=== PATIENT | female | born 1975 | race Caucasian/White ===

== ENCOUNTER 2017-03-25 19:46 | Emergency (ER) | payer OTHER ==
[2017-03-25 20:10] VITALS: BP 138/70; PULSE 92; RESP 18; TEMP 98.3
--- NOTE | 2017-03-25 20:15 | ED ---
General Adult HPI - General Chief complaint: Extremity Injury, Lower Stated complaint: foot pain Time Seen by Provider: 03/25/17 20:02 Source: patient, RN notes reviewed Mode of arrival: ambulatory Limitations: no limitations - History of Present Illness Initial comments: Patient is a 42-year-old female presents emergency room for evaluation of right foot callus. Patient states she's had this on and off since June. Patient states she's tried [id number] remedies including Dr. Solomon's liquid adhesive and soaking her foot in warm water. Patient states that the callus will go away for a few days and then return. Patient states it causes her pain every time she walks. Patient denies following up with her primary care provider or oval or circular glass cutter regarding this issue. Patient denies any recent injuries to the area. Patient denies redness or swelling from the area. Patient denies numbness or tingling in her feet. Patient denies any other complaints at this time. - Related Data Home Medications Medication Instructions Recorded Confirmed Citalopram Hydrobromide [CeleXA] 20 mg PO DAILY 08/21/14 03/25/17 Levothyroxine Sodium [Synthroid] 75 mcg PO DAILY 08/21/14 03/25/17 Lisinopril [Zestril] 2.5 mg PO DAILY 08/21/14 03/25/17 Simvastatin [Zocor] 20 mg PO HS 03/08/15 03/25/17 buPROPion XL [Wellbutrin Xl] 150 mg PO DAILY 06/11/16 03/25/17 Previous Rx's Medication Instructions Recorded ALPRAZolam [Xanax] 0.25 mg PO DAILY PRN #8 tab 05/03/16 Ibuprofen [Motrin] 600 mg PO Q6HR PRN #20 tab 06/11/16 Ibuprofen [Motrin] 600 mg PO Q6HR PRN #20 tab 11/20/16 Allergies Allergy/AdvReac Type Severity Reaction Status Date / Time [place] And Derivatives Allergy Rash/Hives Verified 03/25/17 20:01 [[place]] Review of Systems ROS Statement: Those systems with pertinent positive or pertinent negative responses have been documented in the HPI. ROS Other: All systems not noted in ROS Statement are negative. Past Medical History Past Medical History: Asthma, COPD, Hypertension, Thyroid Disorder History of Any Multi-Drug Resistant Organisms: MRSA Date of last positivie culture/infection: 09/2014 MDRO Source:: knee Past Surgical History: Section, Cholecystectomy, Orthopedic Surgery, Tubal Ligation Past Psychological History: Anxiety, Depression Smoking Status: Current every day smoker Past Alcohol Use History: None Reported Past Drug Use History: None Reported General Exam - General Exam Comments Initial Comments: Sitting in exam room, no acute distress. Limitations: no limitations General appearance: alert, in no apparent distress Head exam: Present: atraumatic, normocephalic, normal inspection Eye exam: Present: normal appearance ENT exam: Present: normal exam Neck exam: Present: normal inspection Respiratory exam: Absent: respiratory distress Right Foot/Toe exam: Present: full ROM. Absent: normal inspection (1 cm in diameter hard callus on the plantar portion of the foot between the first and second digits. No surrounding erythema, swelling or heat.) Neurovascular tendon exam: Present: no vascular compromise. Absent: pulse deficit (2+ dorsal pedal and posterior tibial pulses.), abnormal cap refill ( Capillary refill less than 2 seconds.) Back exam: Present: normal inspection Neurological exam: Present: alert, oriented X3, CN II-XII intact, normal gait Psychiatric exam: Present: normal affect, normal mood Skin exam: Present: warm, dry, normal color. Absent: rash Course Vital Signs 03/25/17 20:02 Temperature 98.3 F Pulse Rate 92 Respiratory 18 Rate Blood Pressure 138/70 O2 Sat by Pulse 96 Oximetry Medical Decision Making - Medical Decision Making Patient is a 42-year-old female since emergency room for evaluation of right foot callus. Advised patient to follow-up with oval or circular glass cutter for further evaluation/treatment. Patient states she understands everything that was discussed with her. Return parameters discussed. Case discussed with Dr. Colby. Disposition Clinical Impression: Callus of foot Disposition: HOME SELF-CARE Condition: Good Additional Instructions: Please follow-up with a oval or circular glass cutter for further evaluation/treatment. If any new symptom arises or symptoms worsen, return to ER as soon as possible. Referrals: Jordon Kebede DPM [STAFF PHYSICIAN] - 1-2 days Time of Disposition: 20:11
== END 2017-03-25 20:22 | disposition home or self-care (01) ==
LOC: EC 19:46
DX: L84 Corns and callosities (principal); I10 Essential (primary) hypertension; E07.9 Disorder of thyroid, unspecified; F32.9 Major depressive disorder, single episode, unspecified; F17.200 Nicotine dependence, unspecified, uncomplicated; Z79.899 Other long term (current) drug therapy; Z91.018 Allergy to other foods; Z98.890 Other specified postprocedural states
CPT/HCPCS: 99283

== ENCOUNTER 2017-04-04 19:36 | Observation (INO) | payer OTHER ==
[2017-04-04 19:41] VITALS: RESP 18
[2017-04-04] MEDS ORDERED: SODIUM CHLORIDE 0.9% 1,000 ML IV STA (19:46)
[2017-04-04] MEDS ORDERED: ASPIRIN 81 MG CHEW PO STA (19:46)
--- NOTE | 2017-04-04 19:51 | ED ---
Chest Pain HPI - General Chief Complaint: Chest Pain Stated Complaint: Chest Pain Time Seen by Provider: 04/04/17 19:43 Source: patient, RN notes reviewed Mode of arrival: wheelchair Limitations: no limitations - History of Present Illness Initial Comments: 42 yo female presents to the ER with cc of chest pain. Patient has been having this chest pain since this afternoon. It was associated with nausea and tingling in bilateral arms. Patient states she has a history of HTN as well as a LBBB. Patient states her pain is about a 9/10 in central chest. Patient states she has had no vomiting. Patient states she does have a MRSA cyst to the face that she started antibiotics for today but this chest pain is different. She denies any history of [place]. Patient states she was concerned due to the continued pain so she thought she should be evaluated. THere is no radiation. - Related Data Home Medications Medication Instructions Recorded Confirmed Citalopram Hydrobromide [CeleXA] 20 mg PO DAILY 08/21/14 04/04/17 Levothyroxine Sodium [Synthroid] 75 mcg PO DAILY 08/21/14 04/04/17 Lisinopril [Zestril] 2.5 mg PO DAILY 08/21/14 04/04/17 Simvastatin [Zocor] 20 mg PO HS 03/08/15 04/04/17 HYDROcodone/APAP 10-325MG [[place] 1 tab PO Q4HR PRN 04/04/17 04/04/17 10-325] Ibuprofen [Motrin] 800 mg PO TID PRN 04/04/17 04/04/17 Allergies Allergy/AdvReac Type Severity Reaction Status Date / Time [place] And Derivatives Allergy Anaphylaxis Verified 04/04/17 20:05 [[place]] Review of Systems ROS Statement: Those systems with pertinent positive or pertinent negative responses have been documented in the HPI. ROS Other: All systems not noted in ROS Statement are negative. EKG Findings - EKG Comments: EKG Findings:: normal sinus rhythm, left bundle branch block, ventricular rate 97, HI interval 150, QRS duration 142 Past Medical History Past Medical History: Asthma, COPD, Hypertension, Thyroid Disorder History of Any Multi-Drug Resistant Organisms: MRSA Date of last positivie culture/infection: 09/2014 MDRO Source:: knee Past Surgical History: Section, Cholecystectomy, Orthopedic Surgery, Tubal Ligation Past Psychological History: Anxiety, Depression Smoking Status: Current every day smoker Past Alcohol Use History: None Reported Past Drug Use History: None Reported General Exam Limitations: no limitations General appearance: alert, in no apparent distress Head exam: Present: atraumatic, normocephalic, normal inspection Eye exam: Present: normal appearance, PERRL, EOMI. Absent: scleral icterus, conjunctival injection, periorbital swelling ENT exam: Present: normal exam, mucous membranes moist Neck exam: Present: normal inspection. Absent: tenderness, meningismus, lymphadenopathy Respiratory exam: Present: normal lung sounds bilaterally. Absent: respiratory distress, wheezes, rales, rhonchi, stridor Cardiovascular Exam: Present: regular rate, normal rhythm, normal heart sounds. Absent: systolic murmur, diastolic murmur, rubs, gallop, clicks GI/Abdominal exam: Present: soft, normal bowel sounds. Absent: distended, tenderness, guarding, rebound, rigid Neurological exam: Present: alert, oriented X3, CN II-XII intact. Absent: motor sensory deficit Psychiatric exam: Present: normal affect, normal mood Skin exam: Present: warm, dry, other (he has a healing pimple to the right cheek.) Course Vital Signs 04/04/17 04/04/17 04/04/17 19:40 20:09 20:13 Temperature 99.8 F H Pulse Rate 107 H 108 H 103 H Respiratory 18 18 18 Rate Blood Pressure 186/107 170/95 161/93 O2 Sat by Pulse 100 99 99 Oximetry 04/04/17 20:23 Temperature 99.0 F Pulse Rate 100 Respiratory 18 Rate Blood Pressure 160/93 O2 Sat by Pulse 100 Oximetry - Reevaluation(s) Reevaluation #1: 04/04/17 20:24 patient's pain did improve with the nitro. Chest Pain MDM - [facility] 42-year-old female presents with chief complaint of chest pain with a history of hip to the left bundle-branch block.at this time patient's pain did improve with the nitro. This time we will admit the patient for cardiac rule out. This is discussed with the patient who is in agreement with the plan. At this time all her questions have been answered. Patient will be admitted. Disposition Clinical Impression: Unstable angina Disposition: ADMITTED IP TO [facility] Condition: Stable Time of Disposition: 21:04 Decision Date: 04/04/17 Decision Time: 21:04
[2017-04-04] MEDS: NITROGLYCERIN SL TABS 0.4 MG TAB SUBLINGUAL STA ×3 (20:05→20:15)
[2017-04-04 20:14] LABS: Basophils # (A) 0.1 k/uL (0-0.2); Basophils % (A) 1 %; CH 29.5; CHCM 33.3; Eosinophils # (A) 0.3 k/uL (0-0.7); Eosinophils % (A) 2 %; HCT 39.2 % (34.0-46.0); HDW 2.43; HGB 13.2 gm/dL (11.4-16.0); Luc # (Auto) 0.14; Luc % (Auto) 1; Lymphocytes # (A) 2.2 k/uL (1.0-4.8); Lymphocytes % (A) 21 %; MCH 29.9 pg (25.0-35.0); MCHC 33.7 g/dL (31.0-37.0); MCV 88.8 fL (80.0-100.0); Mean Platelet Volume 7.4; Monocytes # (A) 0.3 k/uL (0-1.0); Monocytes % (A) 3 %; Neutrophils # (A) 7.7 k/uL (1.3-7.7); Neutrophils % (A) 72 %; RBC 4.42 m/uL (3.80-5.40); WBC 10.7 k/uL (3.8-10.6)
[2017-04-04 20:28] LABS: ALT 29 U/L (9-52); AST 21 U/L (14-36); Alkaline Phosphatase 72 U/L (38-126); Amylase 60 U/L (30-110); Anion Gap 11 mmol/L; Blood Urea Nitrogen 10 mg/dL (7-17); Calcium 9.8 mg/dL (8.4-10.2); Carbon Dioxide 24 mmol/L (22-30); Chloride 103 mmol/L (98-107); Glucose 121 mg/dL (74-99); Non-African American GFR(MDRD) >60 (>60 ml/min/1.73 sqM); Potassium 3.7 mmol/L (3.5-5.1); Sodium 138 mmol/L (137-145); Total Bilirubin 0.5 mg/dL (0.2-1.3); Total Protein 7.8 g/dL (6.3-8.2)
[2017-04-04 20:33] LABS: Creatine Kinase 60 U/L (30-135)
[2017-04-04 20:36] LABS: INR 1.1 (<1.1); Prothrombin Time 10.6 sec (9.0-12.0)
--- NOTE | 2017-04-04 20:41 | XR ---
EXAMINATION TYPE: XR chest 2V DATE OF EXAM: 04/04/2017 8:20 PM COMPARISON: 01/01/2016 HISTORY: Chest pain TECHNIQUE: Frontal and lateral views of the chest are obtained. FINDINGS: Heart and mediastinum are normal. Lungs are clear. Diaphragm is normal. Bony thorax is int act. There are chest leads. IMPRESSION: Normal chest. No change.
[2017-04-04 20:46] LABS: Creatine Kinase MB 0.3 ng/mL (0.0-2.4); Troponin I <0.012 ng/mL (0.000-0.034)
[2017-04-04] MEDS ORDERED: HEPARIN SODIUM,PORCINE 5,000 UNIT/ML 1 ML VIAL IV ONE (21:02)
[2017-04-04] MEDS ORDERED: NITROGLYCERIN SL TABS 0.4 MG TAB SUBLINGUAL PRN (21:02)
[2017-04-04] MEDS ORDERED: HEPARIN SODIUM,PORCINE/D5W PMX 25,000 UNIT in DEXTROSE/WATER 1 500ML.BAG IV SCH (21:15)
[2017-04-04] MEDS ORDERED: NICOTINE 14MG/24HR PATCH TRANSDERM STA (21:21)
[2017-04-04] MEDS ORDERED: IBUPROFEN 200 MG TAB PO PRN (21:41)
[2017-04-04] MEDS ORDERED: ACETAMINOPHEN TAB 500 MG TAB PO STA (21:41)
[2017-04-04] MEDS ORDERED: HYDROcodone/APAP 10-325MG 1 EACH TAB PO PRN (21:41)
[2017-04-04 23:25] VITALS: BP 158/96; PULSE 87; TEMP 98.4
[2017-04-04] MEDS ORDERED: IBUPROFEN 800 MG TAB PO PRN (23:32)
[2017-04-05] MEDS ORDERED: CITALOPRAM HYDROBROMIDE 20 MG TAB PO SCH (09:00)
[2017-04-05] MEDS ORDERED: LISINOPRIL 2.5 MG TAB PO SCH (09:00)
[2017-04-05] MEDS ORDERED: SULFAMETHOX-TMP 800-160MG 1 EACH TAB PO SCH (09:00)
[2017-04-05] MEDS ORDERED: ASPIRIN 325 MG TAB PO SCH (09:00)
[2017-04-05] MEDS ORDERED: LEVOTHYROXINE 75 MCG TAB PO SCH (09:00)
--- NOTE | 2017-05-30 12:43 | P.HPIM ---
History of Present Illness H&P Date: 04/04/17 Chief Complaint: Chest pain This is a 42-year-old female who presented to the hospital chest pain. She has a history of hypertension, hyperlipidemia and hypothyroidism. Patient left AGAINST MEDICAL ADVICE before she was seen and examined. Information was obtained from ER report. Patient presented with chest pain with nausea and tingling in bilateral arms. EKG had shown a normal sinus rhythm with a left bundle branch block. Chest x-ray was negative. Troponin negative. Cardiology was consulted. Patient was admitted to the hospital. However she left AMA from the ER. Past Medical History Past Medical History: Asthma, COPD, Hypertension, Thyroid Disorder History of Any Multi-Drug Resistant Organisms: MRSA Date of last positivie culture/infection: 09/2014 MDRO Source:: knee Past Surgical History: Section, Cholecystectomy, Orthopedic Surgery, Tubal Ligation Past Psychological History: Anxiety, Depression Smoking Status: Current every day smoker Past Alcohol Use History: None Reported Past Drug Use History: None Reported Medications and Allergies Home Medications Medication Instructions Recorded Confirmed Type Citalopram Hydrobromide [CeleXA] 20 mg PO DAILY 08/21/14 04/17/17 History Levothyroxine Sodium [Synthroid] 75 mcg PO DAILY 08/21/14 04/17/17 History Lisinopril [Zestril] 5 mg PO DAILY 08/21/14 04/17/17 History Simvastatin [Zocor] 20 mg PO HS 03/08/15 04/17/17 History Ibuprofen [Motrin] 800 mg PO TID PRN 04/04/17 04/17/17 History Allergies Allergy/AdvReac Type Severity Reaction Status Date / Time [place] And Derivatives Allergy Anaphylaxis Verified 04/16/17 15:09 [[place]] Physical Exam Patient left AGAINST MEDICAL ADVICE before she was seen or examined Results CBC & Chem 7: 04/04/17 19:58 04/04/17 19:58 Assessment and Plan Plan: 1. Chest pain: First troponin negative. EKG shows normal sinus rhythm with a left bundle branch block. Cardiology consulted 2. Hypertension 3. Hyperlipidemia Please refer to ER report for full details. However, patient left AGAINST MEDICAL ADVICE before she was seen or examined by Dr. Lujan. Please note I am currently dictating this report for Dr. Lujan. I did not see or examined the patient
--- NOTE | 2017-05-30 12:49 | P.DS ---
Providers Date of admission: 04/04/17 21:27 Expected date of discharge: 06/04/17 Attending physician: Theodora Flower Consults: 04/04/17 21:02 Consult Physician Urgent Consulting Provider: Naman Munguia Consult Reason/Comments: UA Do you want consulting provider notified?: Yes Primary care physician: Aggie Foster Hospital Course: Discharge diagnosis Left AGAINST MEDICAL ADVICE 1. Chest pain: First troponin negative. EKG shows normal sinus rhythm with a left bundle branch block. Cardiology consulted 2. Hypertension 3. Hyperlipidemia Hospital course This is a 42-year-old female who presented to the hospital chest pain. She has a history of hypertension, hyperlipidemia and hypothyroidism. Patient left AGAINST MEDICAL ADVICE before she was seen and examined. Information was obtained from ER report. Patient presented with chest pain with nausea and tingling in bilateral arms. EKG had shown a normal sinus rhythm with a left bundle branch block. Chest x-ray was negative. Troponin negative. Cardiology was consulted. Patient was admitted to the hospital. However she left AMA from the ER. She has not seen or examined by Dr. Lujan or myself before she left AGAINST MEDICAL ADVICE Please refer to ER report I'm only dictating this report for Dr. Lujan Patient Condition at Discharge: Stable Plan - Discharge Summary New Discharge Prescriptions: No Action Lisinopril [Zestril] 5 mg PO DAILY Levothyroxine Sodium [Synthroid] 75 mcg PO DAILY Citalopram Hydrobromide [CeleXA] 20 mg PO DAILY Simvastatin [Zocor] 20 mg PO HS Ibuprofen [Motrin] 800 mg PO TID PRN PRN Reason: Pain Discharge Medication List Citalopram Hydrobromide [CeleXA] 20 mg PO DAILY 08/21/14 [History] Levothyroxine Sodium [Synthroid] 75 mcg PO DAILY 08/21/14 [History] Lisinopril [Zestril] 5 mg PO DAILY 08/21/14 [History] Simvastatin [Zocor] 20 mg PO HS 03/08/15 [History] Ibuprofen [Motrin] 800 mg PO TID PRN 04/04/17 [History] Follow up Appointment(s)/Referral(s): Aggie Foster MD [Primary Care Provider] - 1-2 days Discharge Disposition: Left Against Medical Advice
== END 2017-04-05 00:06 | disposition left against medical advice (07) ==
LOC: EC 19:36 → 3OBS 21:27
PROVIDERS: ADMIT Internal Medicine; ATTEND Internal Medicine
DX: R07.9 Chest pain, unspecified (principal); I10 Essential (primary) hypertension; I44.7 Left bundle-branch block, unspecified; R11.0 Nausea; R20.2 Paresthesia of skin; Z79.899 Other long term (current) drug therapy; Z91.018 Allergy to other foods; J44.9 Chronic obstructive pulmonary disease, unspecified; J45.909 Unspecified asthma, uncomplicated; F17.200 Nicotine dependence, unspecified, uncomplicated; F41.9 Anxiety disorder, unspecified; F32.9 Major depressive disorder, single episode, unspecified; L72.9 Follicular cyst of the skin and subcutaneous tissue, unspecified; E78.5 Hyperlipidemia, unspecified; E03.9 Hypothyroidism, unspecified; Z53.21 Procedure and treatment not carried out due to patient leaving prior to being seen by health care provider; Z86.14 Personal history of Methicillin resistant Staphylococcus aureus infection
CPT/HCPCS: 96366 ×2; 96376; 96361; 96365; 99285; 36415; 93005; 80053; 82150; 82550; 82553; 83690; 83735; 84484; 85025; 85610; 85730; 87040; 71020; G0378; S4990; J1644 ×2

== ENCOUNTER → 2017-04-16 | Outpatient (CLI) | payer OTHER ==
[2017-04-16 15:06] LABS: Anion Gap 9 mmol/L; Blood Urea Nitrogen 13 mg/dL (7-17); Carbon Dioxide 23 mmol/L (22-30); Chloride 106 mmol/L (98-107); Non-African American GFR(MDRD) >60 (>60 ml/min/1.73 sqM); Potassium 4.2 mmol/L (3.5-5.1); Sodium 138 mmol/L (137-145)
[2017-04-16 15:10] LABS: CH 29.7; HCT 40.2 % (34.0-46.0); HDW 2.36; HGB 13.3 gm/dL (11.4-16.0); MCH 29.7 pg (25.0-35.0); MCV 90.1 fL (80.0-100.0); Mean Platelet Volume 7.3; RBC 4.47 m/uL (3.80-5.40); RDW 13.7 % (11.5-15.5); WBC 8.5 k/uL (3.8-10.6)
== END | disposition home or self-care (01) ==
LOC: LABPAT 14:22
PROVIDERS: ATTEND Internal Medicine Cardiovascular Disease
DX: Z01.812 Encounter for preprocedural laboratory examination (principal); R07.9 Chest pain, unspecified
CPT/HCPCS: 80051; 82565; 84520; 85027

== ENCOUNTER 2017-04-17 06:05 | Day surgery (SDC) | payer OTHER ==
[2017-04-16 15:28] VITALS: BMI 27.3
[~2017-04-17 06:05] MED LIST: ALPRAZolam 0.25 MG TAB PO PRN; ALPRAZolam 0.5 MG TAB PO PRN; ASPIRIN 325 MG TAB PO STA; ATORVASTATIN 80 MG TAB PO STA; NITROGLYCERIN SL TABS 0.4 MG TAB SUBLINGUAL PRN; SODIUM CHLORIDE 0.9% 1,000 ML in EMPTY BAG 1 BAG IV ONE
[2017-04-17 06:29] VITALS: TEMP 98.1
[2017-04-17] MEDS ORDERED: diphenhydrAMINE 50 MG/ML 1 ML VIAL ONE (07:34)
[2017-04-17] MEDS ORDERED: MIDAZOLAM 2 MG/2 ML VIAL ONE (07:34)
[2017-04-17] MEDS ORDERED: MIDAZOLAM 2 MG/2 ML VIAL IV ONE (07:40)
[2017-04-17] MEDS ORDERED: diphenhydrAMINE 50 MG/ML 1 ML VIAL IVP ONE (07:40)
[2017-04-17] MEDS ORDERED: LIDOCAINE 2% INJ 20 MG/ML SQ ONE (07:43)
[2017-04-17] MEDS ORDERED: amLODIPine 5 MG TAB ONE (07:48)
[2017-04-17] MEDS ORDERED: amLODIPine 5 MG TAB PO ONE (07:50)
[2017-04-17] MEDS ORDERED: IOHEXOL 350 MG/ML 125ML BOTTLE INJ ONE (08:02)
[2017-04-17] MEDS ORDERED: RX INFO: IV CONTRAST WAS GIVEN 1 EACH MISC MISCELLANE PRN (08:08)
[2017-04-17] MEDS ORDERED: SODIUM CHLORIDE 0.9% 1,000 ML IV SCH (08:15)
--- NOTE | 2017-04-17 08:15 | CC ---
DATE OF SERVICE: REFERRING PHYSICIAN: Dr. Viktor Foster INDICATION: 1. Chest pain with abnormal stress test. 2. Ischemic unstable angina. 3. Ischemic cardiomyopathy. PROCEDURE NOTE: After obtaining informed consent, left heart catheterization and coronary angiogram are performed via the right femoral artery using standard Stephen catheters. Patient tolerated the procedure well without any obvious immediate complications. FINDINGS: 1. HEMODYNAMICS: Left ventricular end-diastolic pressure is 24 mm. There is no significant gradient across the aortic valve. 2. LEFT VENTRICULOGRAM: Left ventriculogram was not performed. 3. ANGIOGRAPHIC DATA: Left main coronary artery: Left main coronary artery is a normal sized vessel and is free of stenosis, divides into left anterior descending coronary artery and circumflex coronary artery. LAD shows a mild atherosclerotic plaque in its proximal portion. Circumflex coronary artery and its branches are free of significant stenosis. Right coronary artery is a large dominant vessel and is free of significant disease. CONCLUSIONS: Mild nonobstructive disease involving proximal left anterior descending coronary artery. PLAN: Patient's management is going to be in the form of optimal medical therapy and risk factor modification. Her blood pressure has been poorly controlled throughout this hospitalization. I am going to optimize her medications.
[2017-04-17] MEDS ORDERED: IBUPROFEN 800 MG TAB PO STA (09:28)
[2017-04-17 11:28] VITALS: RESP 16
[2017-04-17 13:53] VITALS: BP 150/91; PULSE 79
== END 2017-04-17 13:50 | disposition home or self-care (01) ==
LOC: CATHCVL 06:05
PROVIDERS: ATTEND Internal Medicine Cardiovascular Disease
DX: I25.110 Atherosclerotic heart disease of native coronary artery with unstable angina pectoris (principal); I10 Essential (primary) hypertension; I25.5 Ischemic cardiomyopathy; E78.2 Mixed hyperlipidemia; Z79.899 Other long term (current) drug therapy
CPT/HCPCS: 93458; 99152; 99153; C1760; C1894; C1769; J2001; J2250; J1200; Q9967

== ENCOUNTER 2017-06-20 18:34 | Emergency (ER) | payer OTHER ==
[2017-06-20 18:53] VITALS: RESP 18
[2017-06-20] MEDS ORDERED: KETOROLAC 60 MG/2 ML VIAL IM STA (19:25)
[2017-06-20] MEDS ORDERED: ONDANSETRON 4 MG ODT STARTER PACK 2 TAB BTL PO STA (19:25)
[2017-06-20] MEDS ORDERED: cloNIDine HCL 0.1 MG TAB PO STA ×2 (19:29→20:30)
--- NOTE | 2017-06-20 19:40 | ED ---
General Adult HPI - General Chief complaint: Headache Stated complaint: migraine x 3 days Time Seen by Provider: 06/20/17 19:04 Source: patient, family, RN notes reviewed Mode of arrival: ambulatory Limitations: no limitations - History of Present Illness Initial comments: Chief complaint history of present illness a 42-year-old female here with a complaint of a migraine for 3 days. The patient had a CAT scan of her brain several days ago has not heard the results yet from [facility]. She states she normally has 1 migraine per week this particular one lasted 3 days. Nausea and photophobia but no vomiting. No stiff neck no meningismus. No fever. - Related Data Home Medications Medication Instructions Recorded Confirmed Levothyroxine Sodium [Synthroid] 75 mcg PO DAILY 08/21/14 06/20/17 Simvastatin [Zocor] 20 mg PO DAILY 03/08/15 06/20/17 Aspirin 81 mg PO DAILY 06/20/17 06/20/17 Lisinopril [Zestril] 5 mg PO DAILY 06/20/17 06/20/17 buPROPion HCL [Wellbutrin SR] 150 mg PO BID 06/20/17 06/20/17 Previous Rx's Medication Instructions Recorded Butalb/APAP/Caff 50-325-40Mg 1 tab PO Q4H PRN #15 tablet 06/20/17 [Fioricet 50-325-40] Ondansetron Odt [Zofran Odt] 4 mg PO Q8HR PRN #10 tab 06/20/17 Allergies Allergy/AdvReac Type Severity Reaction Status Date / Time [place] And Derivatives Allergy Anaphylaxis Verified 06/20/17 19:06 [[place]] Review of Systems ROS Statement: Those systems with pertinent positive or pertinent negative responses have been documented in the HPI. Review of systems; patient has photophobia and a migraine type headache for 3 days. No stiff neck or meningismus. No shortness of breath no complaints of GI of the nausea but no vomiting no diarrhea. Neurologically intact. All systems are reviewed Past medical problems significant for COPD, GERD, hyperlipidemia, hypertension, hypothyroidism migraines. The patient's had a heart catheterization because of an irregular stress test but no stents replaced. He had a , gallbladder bilateral knee replacements and tubal ligation. Family history cancer. Patient has ALLERGIES to citrus fruits. Patient quit smoking one month ago denies alcohol use denies drugs ROS Other: All systems not noted in ROS Statement are negative. Past Medical History Past Medical History: Asthma, Chest Pain / Angina, COPD, GERD/Reflux, Hyperlipidemia, Hypertension, Skin Disorder, Thyroid Disorder Additional Past Medical History / Comment(s): migraines History of Any Multi-Drug Resistant Organisms: MRSA Date of last positivie culture/infection: 2013,2014-face, March 2017-face MDRO Source:: knee Past Surgical History: Section, Cholecystectomy, Heart Catheterization , Joint Replacement, Tubal Ligation Additional Past Surgical History / Comment(s): casper. knee replacements Past Anesthesia/Blood Transfusion Reactions: Motion Sickness, Postoperative Nausea & Vomiting (PONV) Past Psychological History: Anxiety, Depression Smoking Status: Current every day smoker Past Alcohol Use History: None Reported Past Drug Use History: None Reported - Past Family History Mother Family Medical History: No Reported History General Exam - General Exam Comments Initial Comments: General: The patient is awake and alert, complaining of bilateral headache. Nausea with photophobia but no vomiting. Vital signs temp 96.8 pulse 82 respiratory rate 18 pulse ox 99% room air. Eye: Pupils are equal, round and reactive to light, extra-ocular movements are intact ; there is normal conjunctiva bilaterally. No signs of icterus. Mild photophobia Ears, nose, mouth and throat: There are moist mucous membranes and no oral lesions. Neck: The neck is supple, there is no tenderness , no stiff neck, no meningismus. Cardiovascular: There is a regular rate and rhythm. No murmur, rub or gallop is appreciated. Respiratory: Lungs are clear to auscultation, respirations are non-labored, breath sounds are equal. No wheezes, stridor, rales, or rhonchi. Gastrointestinal: Soft, non-distended, non-tender abdomen without masses or organomegaly noted. There is no rebound or guarding present. No CVA tenderness. Bowel sounds are unremarkable. Back: There is no tenderness to palpation in the midline. There is no obvious deformity. No rashes noted. Musculoskeletal: Normal ROM, no tenderness, There is no pedal edema. There is no calf tenderness or swelling. Sensation intact. Pulses equal bilaterally 2+. Neurological: CN II-XII intact, There are no obvious motor or sensory deficits. Coordination appears grossly intact. Speech is normal. No focal or lateralizing findings. Skin: Skin is warm and dry and no rashes or lesions are noted. Limitations: no limitations Course Vital Signs 06/20/17 18:51 Temperature 96.8 F L Pulse Rate 82 Respiratory 18 Rate Blood Pressure 180/100 O2 Sat by Pulse 99 Oximetry Medical Decision Making - Medical Decision Making Patient states she is feeling better rate ago. She'll be placed on Fioricet for headaches as well as Zofran for control nausea vomiting and she is going to follow-up with her doctors at the [place]. Disposition Clinical Impression: Migraine Disposition: HOME SELF-CARE Condition: Fair Instructions: Migraine Headache (ED) Additional Instructions: Take blood pressure medications at home. Take Fioricet for headaches and Zofran for nausea follow-up with her family physician. Prescriptions: Butalb/APAP/Caff 50-325-40Mg [Fioricet 50-325-40] 1 tab PO Q4H PRN #15 tablet PRN Reason: Headache Ondansetron Odt [Zofran Odt] 4 mg PO Q8HR PRN #10 tab PRN Reason: Nausea vomiting Referrals: Nonstaff,Physician [Primary Care Provider] - 1-2 days Time of Disposition: 20:22
[2017-06-20 21:19] VITALS: BP 155/98; PULSE 74; TEMP 97.6
== END 2017-06-20 21:19 | disposition home or self-care (01) ==
LOC: EC 18:34
DX: G43.909 Migraine, unspecified, not intractable, without status migrainosus (principal); R11.0 Nausea; E78.5 Hyperlipidemia, unspecified; I10 Essential (primary) hypertension; E07.9 Disorder of thyroid, unspecified; F32.9 Major depressive disorder, single episode, unspecified; F17.200 Nicotine dependence, unspecified, uncomplicated; Z79.82 Long term (current) use of aspirin; Z79.899 Other long term (current) drug therapy; Z91.018 Allergy to other foods
CPT/HCPCS: 99283; 96372; J1885; S0119